=== PATIENT | female | born 1995 | race Caucasian/White ===

== ENCOUNTER 2021-02-09 09:12 | Outpatient (CLI) | payer MEDICAID ==
[~2021-02-09] VITALS: Ht 157.5 cm; Wt 113.6 kg
--- NOTE | 2021-02-09 09:20 | NUR ---
Pt arrived on unit via wheelchair escorted by her and with complaints of contractions "every couple minutes making me yell and cry" Pt denies any leaking of fluid or vaginal bleeding and reports normal movement. EFM and toco monitors started. Vital signs WNL. SVE done FT/50/-3.
[2021-02-09 10:05] VITALS: BP 110/76; PULSE 85; TEMP 98.8
--- NOTE | 2021-02-09 10:15 | NUR ---
Discharge instructions reviewed with pt and at the bedside. Both verbalized an understanding, agreed with the plan and states no questions or concerns at this time.
== END 2021-02-09 10:15 | disposition home or self-care (01) ==
LOC: LDRO 09:12 → LDR 09:30 → LDRO 10:15
DX: O62.9 Abnormality of forces of labor, unspecified (principal); Z3A.40 40 weeks gestation of pregnancy
CPT/HCPCS: OP

== ENCOUNTER 2021-02-10 02:04 | Inpatient (IN) | payer MEDICAID ==
[~2021-02-10] VITALS: Ht 160 cm; Wt 113.6 kg
[2021-02-10] VITALS (54 sets, daily range): BP systolic 96–156; BP diastolic 50–85; PULSE 82–179; TEMP 97.9–98.5
--- NOTE | 2021-02-10 02:10 | NUR ---
G1L0. 40-3. Pt ambulatory to LDR 6 with significant other. Clean gown on. EFM and TOCO explained and applied. Pt states she thinks her water broke at 0120. Reports clear fluid. Denies vaginal bleeding and reports irregular contractions at this time. Reports good movement. 0220: SVE 1/-2. Amniotest +. Pericare provided and pads changed. Plan of care explained. 0305: called and admit orders received. See physican notification. Difficulty tracing FHR due to maternal size and pain. 0323: IV started and labs obtained vis IV site. LR bolus infusing without difficulty. Pt very uncomfortable and requesting an epidural. 0347: FRANCISCA Pennington at bedside for epidural and pt assisted to edge of bed. Difficulty tracing FHR due to maternal position. Pulse ox applied and tracing. 0352: Single shot administered by FRANCISCA Pennington. See anesthesia records. 0400: Pt repsoitioned in bed, wedged left. Plan of care and safety precautions explained. Call light within reach.
[2021-02-10 03:33] LABS: BASO % 0.3 % (0.0-2.0); EOS % 0.2 % (0-4.0); GRAN # 8.3 (1.4-6.5); GRAN % 75.6 % (42.2-75.2); HEMATOCRIT 36.9 % (37.0-47.0); HEMOGLOBIN 12.1 g/dl (12.5-16.0); LYMPH # 1.6 (1.2-3.4); LYMPH % 14.3 % (20.0-51.0); MEAN CELL VOLUME 83 fl (80.0-100.0); MEAN CORPUSCULAR HEMOGLOBIN 27 pg (27.0-31.0); MEAN CORPUSCULAR HGB CONC 33 g/dl (33.0-37.0); MEAN PLATELET VOLUME 9.8 fl (7.4-10.4); MONO % 9.1 % (1.7-9.3); PLATELET COUNT 315 K/mm3 (130-400); RED BLOOD COUNT 4.46 M/mm3 (4.10-5.30); REDCELL DISTRIBUTION WIDTH-CV 14.2 % (11.5-14.5)
--- NOTE | 2021-02-10 07:29 | NUR ---
DIFFICULTY TRACING CONTRACTIONS DUE TO PATIENT BEING LATERAL. THIS RN ADJUSTING MONITOR.
--- NOTE | 2021-02-10 07:39 | NUR ---
0700 SVE PER PAKO TESFAYE -/-2. [address] LIAO WITH UPDATE ON PT. ORDERS TO START PITOCIN 0715 PITOCIN AUGMENTATION DISCUSSED WITH PT. PT AGREES WITH PLAN OF CARE. STARTED PITOCIN AT 2mu/hr PER KESHAWN'S ORDER.
--- NOTE | 2021-02-10 08:34 | NUR ---
DIFFICULTY TRACING FHR DUE TO MATERNAL POSITION.
--- NOTE | 2021-02-10 11:45 | NUR ---
1120 RN AT BEDSIDE READJUSTING FHR MONITOR.
--- NOTE | 2021-02-10 12:03 | NUR ---
CONTRACTION MONITOR BEING READJUSTED. PAKO TESFAYE AT BEDSIDE.
--- NOTE | 2021-02-10 12:15 | NUR ---
1150 DR. DUKE AT NURSES STATION REVIEWING FHR STRIP. ORDERS TO CONTINUE INCREASING PITOCIN.
--- NOTE | 2021-02-10 13:06 | NUR ---
THIS RN AT BEDSIDE. REPOSITIONING PATIENT TO WEDGED RIGHT. FHR BASELINE TRACING 120 BPM. 1309 FHR DECREASING TO 100-115 BPM FOR APPROX. 3 MINUTES. PT REPOSITIONED. FHR GRADUALLY RETURNING TO 120 BPM.
--- NOTE | 2021-02-10 13:56 | NUR ---
RN AT BEDSIDE ADJUSTING FHR MONITOR
--- NOTE | 2021-02-10 13:59 | NUR ---
RN AT BESIDE ADJUSTING FHR MONITOR
--- NOTE | 2021-02-10 14:01 | NUR ---
RN AT BEDSIDE ADJUSTING FHR MONITOR. CHANGING MATERNAL POSITION.
--- NOTE | 2021-02-10 16:57 | NUR ---
1335 RN AT BEDSIDE DIFFICULTY TRACING FHR. THIS RN ADJUSTING MONITOR. REPOSITIONG PATIENT. 1400 SVE PER PAKO RN 10100/0. 1405 ALBERT CATHETER REMOVED. PT TOLERATES WELL. 1410 PUSHING INSTRUCTIONS DISCUSSED WITH PT. PT VERBALIZES UNDERSTANDING. PT BEGINS PUSHING WITH EACH CONTRACTION. DIFFICULTY TRACING FHR. MONITOR BEING ADJUSTED. 1420 DR DUKE AT BEDSIDE. ASSESSING PT AND FHR STRIP. DISCUSSES NEED FOR SCALP ELECTRODE. PT AGREES WITH PLAN. [address] DUKE. SCALP ELECTRODE PLACED. PT TOLERATES WELL. OXYGEN AT 10ml/hr PLACED VIA MASK AT THIS TIME. PT CONTINUES PUSHING WITH EACH CONTRACTION 1435 FHR TRACING RECURRENT VARIABLES PT CONTINUES TO PUSH WITH CONTRACTIONS. DR DUKE AT NURSES STATION REVIEWING FHR STRIP. 1440 DR DUKE CALLED TO BEDSIDE FOR DELIVERY. PT PREPPED FOR VAGINAL DELIVERY. DONI CARE DONE. PT CONTINUES TO PUSH WITH CONTRACTIONS. 1451 SPONTAENOUS VAGINAL DELIVERY OF VIABLE MALE . HEAD FOLLOWED BY BODY. INFANT TO MOTHER'S CHEST. BULB SUCTIONED. CORD CLAMPED PER DR DUKE AND CUT BY FOHiram. AMY RN ASSUMES CARE OF . CORD BLOOD OBTAINED. 1458 SPONTANEOUS DELIVERY OF PLACENTA. PITOCIN BOLUS STARTED AT 333ml/hr PER PROTOCOL. FUNDAL MASSAGE DONE. MODERATE BLEEDING NOTED. DR ERENDIRA ALEGRIA ORDERS FOR METHERGINE IM TO BE GIVEN. 1507 METHERGINE IM GIVEN. 1509 LIDOCAINE GIVEN PER PHYSICIAN TO PERINEUM. HALEY ESPINOSA AT BEDSIDE DOSING EPIDURAL. FUNDAL MASSAGE DONE. CLOTS EXPRESSED. BLEEDING DECREASING. DR DUKE BEGINS REPAIRING LACERATION. PT REPOSITIONED. ICEPACK TO PERINEUM. SAFETY PRECAUTIONS AND PLAN OF CARE DISCUSSED WITH PT. PT VERBALIZES UNDERSTANDING.
--- NOTE | 2021-02-10 17:20 | NUR ---
Patient assisted to edge of bed, epidural catheter removed and patient tolerates well. Patient assisted to wheel chair and to bathroom. Voids, pericare done, new gown/pad/underwear on. Patient to wheelchair and to .
[2021-02-11] VITALS: BP 89/52; BP 96/47; PULSE 75; TEMP 97.6
[2021-02-11 04:00] VITALS: BP 114/80; PULSE 101; TEMP 98
[2021-02-11 08:45] VITALS: BP 105/88; PULSE 91; TEMP 98.5
--- NOTE | 2021-02-11 13:51 | NUR ---
harm reduction worker met with patient to complete an assessment of needs and provide resources. This is first baby for patient. Patient lives with her boyfriend and will return there. Patient has a car seat and crib. Patient states she has support from the father of the baby's family. Patient does not have a car and their income is from [place] assistance, good stamps. The father of the baby sells plasma and will have his disability case resolved soon. Patient states they are able to afford their housing. Worker provided written resource information for obtaining food commodities and meal sites as well as medicaid transportation phone number. Patient states she was previously prescribed zoloft and abilify from [facility] in [place]. Worker provided information on [facility] and patient is agreeable to having an appointment set up for mental health support and prescriptions. Worker collaborated with Dr Bland and patient's nurse regarding the above information.
--- NOTE | 2021-02-11 14:00 | NUR ---
industrial services worker notified Jayda and provided information to set patient up as a new client. Jayda will now notify patient to complete the process and arranged an appointment.
[2021-02-11 15:10] VITALS: BP 110/70; PULSE 102; TEMP 97.8
[2021-02-11 19:25] VITALS: BP 109/68; PULSE 91; TEMP 97.7
[2021-02-12 07:00] VITALS: BP 101/70; PULSE 106; TEMP 98.1
[2021-02-12] MEDS ORDERED: IBU800 M1 PO (09:22)
--- NOTE | 2021-02-12 09:40 | NUR ---
Discharge instructions and follow up care reviewed with pt. Pt verbalized an understanding, agreed with the plan and states no questions or concerns at this time.
== END 2021-02-12 10:00 | disposition home or self-care (01) | DRG 806 ==
LOC: LDRO 02:04 → OB 03:09 → LDR 03:09 → OB 17:30
PROVIDERS: Obstetrics & Gynecology; ADMIT Obstetrics & Gynecology
PROC: 10E0XZZ Delivery of Products of Conception, External Approach (ICD-10-PCS; principal; 2021-02-10)
PROC: 0HQ9XZZ Repair Perineum Skin, External Approach (ICD-10-PCS; 2021-02-10)
PROC: 0UQKXZZ Repair Hymen, External Approach (ICD-10-PCS; 2021-02-10)
PROC: 0UC97ZZ Extirpation of Matter from Uterus, Via Natural or Artificial Opening (ICD-10-PCS; 2021-02-10)
DX: O48.0 Post-term pregnancy (principal); O72.1 Other immediate postpartum hemorrhage; Z37.0 Single live birth; O99.214 Obesity complicating childbirth; O70.0 First degree perineal laceration during delivery; Z3A.40 40 weeks gestation of pregnancy
CPT/HCPCS: J1200; J2210; J2400; J2590; J7120

== ENCOUNTER 2021-12-04 02:48 | Emergency (ER) | payer MEDICAID ==
[~2021-12-04] VITALS: Ht 157.5 cm; Wt 100.0 kg
[~2021-12-04 02:48] MED LIST: IBU800 M1 PO
[2021-12-04 03:07] VITALS: TEMP 99.4
[2021-12-04 04:42] VITALS: BP 128/62; PULSE 87
== END 2021-12-04 04:43 | disposition home or self-care (01) ==
LOC: COL.ER 02:48
DX: U07.1 COVID-19 (principal); Z28.311 Partially vaccinated for COVID-19